=== PATIENT | female | born 1980 | race Hispanic/Latino ===

== ENCOUNTER 2019-08-11 09:46 | Emergency (ER) | payer OTHER ==
[2019-08-11 10:00] VITALS: BP 95/60
--- NOTE | 2019-08-11 11:09 | Emergency Department Report ---
ED Abdominal Pain HPI - General Chief Complaint: Abdominal Pain Stated Complaint: SOB Time Seen by Provider: 08/11/19 10:59 Source: patient Mode of arrival: Wheelchair Limitations: No Limitations - History of Present Illness Initial Comments: 39-year-old F [place] female presents emergency department complaining of sudden onset of right lower quadrant and flank pain that started this morning that woke her out of her sleep. No associated nausea vomiting. She reports no diarrhea constipation, fever, chills, sweats, hemoptysis, hematemesis, hematoch ezia. MD Complaint: abdominal pain Location: RLQ Migration to: no migration Severity: mild, moderate Quality: aching, sharp Consistency: intermittent Worsens With: movement Associated Symptoms: denies other symptoms. denies: dysuria, hematemesis, hematochezia, hematuria, anorexia, syncope - Related Data Previous Rx's Medication Instructions Recorded Last Taken Type Ketorolac [Toradol] 10 mg PO Q6H PRN #14 tablet 08/11/19 Unknown Rx Allergies Allergy/AdvReac Type Severity Reaction Status Date / Time No Known Allergies Allergy Unverified 08/11/19 10:00 ED Review of Systems ROS: Stated complaint: SOB Other details as noted in HPI Comment: All other systems reviewed and negative ED Past Medical Hx - Past Medical History Previous Medical History?: No - Surgical History Past Surgical History?: No - Social History Smoking Status: Never Smoker Substance Use Type: None - Medications Home Medications: Home Medications Medication Instructions Recorded Confirmed Last Taken Type Ketorolac [Toradol] 10 mg PO Q6H PRN #14 tablet 08/11/19 Unknown Rx ED Physical Exam - General Limitations: No Limitations General appearance: alert, in no apparent distress - Head Head exam: Present: atraumatic, normocephalic - Eye Eye exam: Present: normal appearance - ENT ENT exam: Present: mucous membranes moist - Neck Neck exam: Present: normal inspection - Respiratory Respiratory exam: Present: normal lung sounds bilaterally. Absent: respiratory distress - Cardiovascular Cardiovascular Exam: Present: regular rate, normal rhythm. Absent: systolic murmur, diastolic murmur, rubs, gallop - GI/Abdominal GI/Abdominal exam: Present: soft, tenderness (Tenderness to the right lower quadrant with palpation and to the mid lower abdomen. No Rovsing. And abdomen is soft. No Halsey sign, no [place]), normal bowel sounds - Extremities Exam Extremities exam: Present: normal inspection - Back Exam Back exam: Present: normal inspection. Absent: CVA tenderness (R), CVA tender ness (L) - Neurological Exam Neurological exam: Present: alert, oriented X3, CN II-XII intact - Psychiatric Psychiatric exam: Present: normal affect, normal mood - Skin Skin exam: Present: warm, dry, intact, normal color. Absent: rash ED Course Vital Signs 08/11/19 09:55 Temperature 98.6 F Pulse Rate 68 Respiratory 20 Rate Blood Pressure 95/60 O2 Sat by Pulse 99 Oximetry ED Medical Decision Making - Lab Data Result diagrams: 08/11/19 11:08 08/11/19 11:08 Lab Results 08/11/19 08/11/19 08/11/19 Range/Units 11:08 11:08 13:26 WBC 10.5 (4.5-11.0) K/mm3 RBC 3.58 L (3.65-5.03) M/mm3 Hgb 12.0 (10.1-14.3) gm/dl Hct 36.1 (30.3-42.9) % MCV 101 H (79-97) fl MCH 34 H (28-32) pg MCHC 33 (30-34) % RDW 13.6 (13.2-15.2) % Plt Count 172 (140-440) K/mm3 Lymph % (Auto) 3.3 L (13.4-35.0) % [place] % (Auto) 6.4 (0.0-7.3) % Eos % (Auto) 0.4 (0.0-4.3) % Baso % (Auto) 2.1 H (0.0-1.8) % Lymph # 0.3 L (1.2-5.4) K/mm3 [place] # 0.7 (0.0-0.8) K/mm3 Eos # 0.0 (0.0-0.4) K/mm3 Baso # 0.2 H (0.0-0.1) K/mm3 Seg Neutrophils % 87.8 H (40.0-70.0) % Seg Neutrophils # 9.2 H (1.8-7.7) K/mm3 Sodium 138 (137-145) mmol/L Potassium 3.5 L (3.6-5.0) mmol/L Chloride 103.8 (98-107) mmol/L Carbon Dioxide 25 (22-30) mmol/L Anion Gap 13 mmol/L BUN 16 (7-17) mg/dL Creatinine 0.9 (0.7-1.2) mg/dL Estimated GFR > 60 ml/min BUN/Creatinine Ratio 18 % Glucose 97 (65-100) mg/dL Calcium 9.1 (8.4-10.2) mg/dL Total Bilirubin 0.30 (0.1-1.2) mg/dL Direct Bilirubin < 0.2 (0-0.2) mg/dL Indirect Bilirubin 0.1 mg/dL AST 13 (5-40) units/L ALT 6 L (7-56) units/L Alkaline Phosphatase 76 (35-129) units/L Total Protein 7.0 (6.3-8.2) g/dL Albumin 4.0 (3.9-5) g/dL Albumin/Globulin Ratio 1.3 % Lipase 19 (13-60) units/L Urine Color Arely (Yellow) Urine Turbidity Slightly-cloudy (Clear) Urine pH 6.0 (5.0-7.0) Ur Specific [place] 1.023 (1.003-1.030) Urine Protein <15 mg/dl (Negative) mg/dL Urine Glucose (UA) Neg (Negative) mg/dL Urine Ketones Tr (Negative) mg/dL Urine Blood Neg (Negative) Urine Nitrite Pos (Negative) Urine Bilirubin Neg (Negative) Urine Urobilinogen < 2.0 (<2.0) mg/dL Ur Leukocyte Esterase Neg (Negative) Urine WBC (Auto) 2.0 (0.0-6.0) /HPF Urine RBC (Auto) 2.0 (0.0-6.0) /HPF U Epithel Cells (Auto) 2.0 (0-13.0) /HPF Urine Bacteria (Auto) 2+ (Negative) /HPF Urine Mucus 3+ /HPF Urine HCG, Qual Negative (Negative) - Radiology Data Radiology results: report reviewed [facility] [address] [place] [address] Cat Scan Report Signed Patient: ROSSY TENORIO MR #: [id number] : 1980 Acct:[id number] Age/Sex: 39 / F ADM Date: 08/11/19 Loc: ED Attending Dr: Ordering Physician: ROSELINE PANTOJA Date of Service: 08/11/19 Procedure(s): CT abdomen pelvis w con Accession Number(s): [id number] cc: ROSELINE PANTOJA CT ABDOMEN AND PELVIS WITH CONTRAST HISTORY: MAIN: Abdominal Pain RT LOWER QUAD PAIN X 1 DAY OMNIPAQUE 300 100ML NEG PREG TEST. COMPARISON: None. TECHNIQUE: CT images of the abdomen and pelvis were obtained following administration of intravenous contrast. All CT scans at this location are performed using CT dose reduction for ALARA by means of automated exposure control. CONTRAST: 100 ml of intravenous contrast administered. FINDINGS: Lungs/bones: Lung bases are clear. No acute osseous abnormality identified. Abdomen/pelvis: There are simple cysts in the liver. Liver otherwise appears unremarkable. The gallbladder, spleen, pancreas, adrenals, and proximal GI tract appear unremarkable. There are small simple cysts in the kidneys. Urinary bladder is unremarkable. There is fluid within the endometrial canal with lobulation in the body left of midline and a masslike structure measuring 2.5 cm on image #143 of series 2, likely a fibroid. An adjacent smaller structure which is hyperdense on image 138 may represent a hemorrhagic fibroid. There is mild diffuse uterine edema--correlate with stage in menstrual cycle. There is also a simple left-sided ovarian cyst measuring 1.6 cm on image 128. Trace pelvic free fluid is present. No acute colonic abnormality identified. The appendix is normal. IMPRESSION: 1. Reproductive findings as outlined above--correlate with stage in menstrual cycle. Probable uterine fibroid disease. Signer Name: Juma Griffin MD Signed: 08/11/2019 3:30 PM Workstation Name: [id number] Transcribed By: HUSSEIN Dictated By: Juma Griffin MD Electronically Authenticated By: Juma Griffin MD Signed Date/Time: 08/11/19 1530 DD/ 1527 TD/TT: - Medical Decision Making This patient presents with abdominal pain of unclear etiology. A CT scan was performed to evaluate for potential causes of the abdominal pain, however, neither the clinical exam nor the CT has identified an emergent etiology for the abdominal pain. Specifically, given the benign exam, the laboratory studies, and unremarkable CT, I have a very low suspicion for appendicitis, ischemic bowel, bowel perforation, or any other life threatening disease. I have discuss ed with the patient the level of uncertainty with undifferentiated abdominal pain and clearly explained the need to follow-up as noted on the discharge instructions, or return to the Emergency Department immediately if the pain worsens, develops fever, persistent and uncontrollable vomiting, or for any new symptoms or concerns. Discussed the CT scan was on significant for uterine fibroids advised patient the need to follow-up with [facility] for definitive treatment and management Critical care attestation.: If time is entered above; I have spent that time in minutes in the direct care of this critically ill patient, excluding procedure time. ED Disposition Clinical Impression: Leiomyoma of body of uterus Disposition: DC-01 TO HOME OR SELFCARE Is pt being admited?: No Does the pt Need Aspirin: No Condition: Stable Instructions: Abdominal Pain (ED), Uterine Fibroids (ED) Prescriptions: Ketorolac [Toradol] 10 mg PO Q6H PRN #14 tablet PRN Reason: Pain Referrals: PRIMARY CAREMD [Primary Care Provider] - 3-5 Days [facility] [Provider Group] - 3-5 Days
[2019-08-11 12:13] LABS: Alanine Aminotransferase 6 units/L (7-56); BUN/Creatinine Ratio 18; Blood Urea Nitrogen 16 mg/dL (7-17); Calcium 9.1 mg/dL (8.4-10.2); Hemolysis Index 8
[2019-08-11] MEDS ORDERED: SODIUM CHLORIDE 0.9% 1000 ML 1,000 ML IV ONE (12:13)
[2019-08-11] MEDS ORDERED: fentaNYL 100 MCG/2 ML INJ IV ONE (12:14)
[2019-08-11] MEDS ORDERED: HYOSCYAMINE SUBL 0.125 MG TAB SL ONE (12:14)
[2019-08-11 12:16] LABS: Bilirubin,Direct < 0.2 mg/dL (0-0.2)
[2019-08-11 12:44] LABS: Basophils # (Auto) 0.2 K/mm3 (0.0-0.1); Basophils % (Auto) 2.1 % (0.0-1.8); Eosinophils % (Auto) 0.4 % (0.0-4.3); Hematocrit 36.1 % (30.3-42.9); Lymphocytes # (Auto) 0.3 K/mm3 (1.2-5.4); Lymphocytes % (Auto) 3.3 % (13.4-35.0); Mean Corpuscular HGB Conc 33 % (30-34); Mean Corpuscular Volume 101 fl (79-97); Monocytes # (Auto) 0.7 K/mm3 (0.0-0.8); Monocytes % (Auto) 6.4 % (0.0-7.3); Platelet Count 172 K/mm3 (140-440); Red Blood Count 3.58 M/mm3 (3.65-5.03); Red Cell Distribution Width 13.6 % (13.2-15.2)
[2019-08-11 14:50] LABS: Bacteria,Urine 2+ /HPF (Negative); Bilirubin,Urine NEG (Negative); Blood,Urine NEG (Negative); Color,Urine Amber (Yellow); HCG Qualitative,Urine Negative (Negative); Mucus,Urine 3+ /HPF; Protein,Urine <15 mg/dL mg/dL (Negative); Urobilinogen,Urine < 2.0 mg/dL (<2.0)
--- NOTE | 2019-08-11 15:34 | Cat Scan Report ---
CT ABDOMEN AND PELVIS WITH CONTRAST HISTORY: MAIN: Abdominal Pain RT LOWER QUAD PAIN X 1 DAY OMNIPAQUE 300 100ML NEG PREG TEST. COMPARISON: None. TECHNIQUE: CT images of the abdomen and pelvis were obtained following administration of intravenous contrast. All CT scans at this location are performed using CT dose reduction for ALARA by means of automated exposure control. CONTRAST: 100 ml of intravenous contrast administered. FINDINGS: Lungs/bones: Lung bases are clear. No acute osseous abnormality identified. Abdomen/pelvis: There are simple cysts in the liver. Liver otherwise appears unremarkable. The gallb ladder, spleen, pancreas, adrenals, and proximal GI tract appear unremarkable. There are small simple cysts in the kidneys. Urinary bladder is unremarkable. There is fluid within the endometrial canal with lobulation in the b joon left of midline and a masslike structure measuring 2.5 cm on image #143 of series 2, likely a fib roid. An adjacent smaller structure which is hyperdense on image 138 may represent a hemorrhagic fibr oid. There is mild diffuse uterine edema--correlate with stage in menstrual cycle. There is also a si mple left-sided ovarian cyst measuring 1.6 cm on image 128. Trace pelvic free fluid is present. No ac [place] colonic abnormality identified. The appendix is normal. IMPRESSION: 1. Reproductive findings as outlined above--correlate with stage in menstrual cycle. Probable uterine fibroid disease. Signer Name: Juma Griffin MD Signed: 08/11/2019 3:30 PM Workstation Name: [id number]
== END 2019-08-11 16:26 | disposition home or self-care (01) ==
LOC: ED 09:46
DX: D25.9 Leiomyoma of uterus, unspecified (principal); Z79.899 Other long term (current) drug therapy
CPT/HCPCS: 36415; 74177; 80048; 80076; 81001; 81025; 83690; 85025; 96374; 99284; J3010; J7030; Q9967